=== PATIENT | female | born 1990 | race Caucasian/White ===

== ENCOUNTER → 2020-02-28 19:33 | Outpatient (BNVA) | payer MEDICAID, SELFPAY | PROVIDERS: Family Provider Nurse Practitioner; Visit Provider Nurse Practitioner Family | DX: Z11.59 Encounter for screening for other viral diseases (principal) | CPT/HCPCS: 87635 ==

== ENCOUNTER → 2020-05-21 16:23 | Outpatient (BNVA) | payer OTHER, SELFPAY | PROVIDERS: Family Provider Nurse Practitioner; Visit Provider Family Medicine | DX: J02.9 Acute pharyngitis, unspecified (principal) | CPT/HCPCS: 87071; 87880 ==

== ENCOUNTER → 2020-06-19 17:06 | Outpatient (BNVA) | payer OTHER, SELFPAY | PROVIDERS: Family Provider Nurse Practitioner; Visit Provider Family Medicine | DX: G62.9 Polyneuropathy, unspecified (principal) | CPT/HCPCS: 36416; 80053; 82607; 82962; 84443 ==

== ENCOUNTER 2021-01-09 02:23 | Emergency (ER) | payer OTHER, SELFPAY ==
[2021-01-09 02:41] VITALS: BP 127/89; PULSE 113; RESP 18; TEMP 38.2; O2SAT 98; BMI 38.0
--- NOTE | 2021-01-09 02:56 | XRR_ITS ---
PROCEDURE INFORMATION: Exam: XR Chest Exam date and time: 01/09/2021 2:56 AM Age: 30 years old Clinical indication: Patient HX: Fever. TECHNIQUE: Imaging protocol: XR of the chest. Views: 1 view. COMPARISON: No relevant prior studies available. FINDINGS: Lungs: Hazy right basilar opacity which could be secondary to atelectasis or pneumonia. Pleural spaces: Unremarkable. No pleural effusion. No pneumothorax. Heart/Mediastinum: Unremarkable. No cardiomegaly. Bones/joints: Unremarkable. XR/XR chest 1V portable [id number] IMPRESSION: Hazy right basilar opacity which could be secondary to atelectasis or pneumonia.
--- NOTE | 2021-01-09 03:12 | ED_ITS ---
HPI - COVID General: Chief Complaint: Fever Stated Complaint: Fever\Muscles Aches\Urine dark Time Seen by Provider: 01/09/21 03:06 Source: patient Mode of arrival: ambulatory Limitations: no limitations Triage information: Has fever, cough or shortness of breath . No known COVID + exposure last 14 days History of Present Illness: HPI Narrative: 30-year-old female states over the last 3 days she has been having fevers along with some lower back pain and body aches. She has had temperature up to 102. States she had a rapid test yesterday was negative. She states that her urine has been dark as well. Denies any dysuria. She denies any pain currently. Denies any vomiting or diarrhea. Denies cough or shortness of breath COVID 19 common symptoms: positive fever(s), chills and body aches; negative dyspnea, headache(s), throat pain, nausea, vomiting or diarrhea COVID 19 other sytmptoms: negative chest pain COVID Results: SARS-CoV-2 Antigen (Rapid) Negative (Negative) 01/09/21 03:58 01/09/21 Nasal/Oral Coronavirus 2019 PCR Negative 02/28/20 19:33 02/28/20 Review of Systems Const: Reports: fever(s), chills and body aches Eyes: Denies: blurry vision or eye discomfort ENMT: Denies: throat pain or dental pain Card: Denies: chest pain Resp: Denies: dyspnea GI: Denies: abdominal pain, nausea, vomiting or diarrhea : Denies: dysuria Musc: Denies: neck pain or back pain Skin/Breast: Denies: rash Neuro: Denies: headache(s) Psych: Denies: depression Prem/Lymph: Denies: easy bruising All/Imm: Denies: urticaria PFSH ED PFSH: Social History Smoking and tobacco status: never smoked Alcohol intake: never Female Reproductive History: Spontaneous abortions: No Physical Exam Const: COMMON NORMALS: no acute distress, patient oriented x3 and healthy appearing HENMT: COMMON NORMALS: normocephalic and atraumatic HEAD & SCALP: normocephalic and atraumatic Eye: COMMON NORMALS: Equal, round and reactive pupils present and EOMs intact bilaterally PUPIL: Yes Equal, round and reactive pupils present Neck/C-Spine: COMMON NORMALS: full ROM and supple Chest: COMMONS NORMALS: normal inspection of the chest and normal palpation of entire chest wall Resp: COMMON NORMALS: normal respiratory effort, No retractions, No use of accessory muscles and clear to auscultation bilaterally AUSCULTATION: clear to auscultation bilaterally Cardio: COMMON NORMALS: regular rate, regular rhythm and No murmurs present (Cardio) RATE: regular rate RHYTHM: regular rhythm GI: COMMON NORMALS: Normal to inspection, nondistended, normoactive bowel sounds present, Soft to palpation, non-tender and no masses PALPATION: Yes Soft to palpation Extremity: COMMON NORMALS: normal to inspection and full ROM Neuro: COMMON NORMALS: patient oriented x3, moves all extremities and no focal motor deficits Psych: COMMON NORMALS: mental status grossly normal, Normal thought process present and cooperative THOUGHT PROCESS: Normal thought process present Skin: COMMON NORMALS: no rashes or lesions noted and no wounds GENERAL SKIN EXAM: no rashes or lesions noted Course Vital Signs: Vital signs: Vital Signs Temperature 100.8 F H 01/09/21 02:41 Pulse Rate 113 H 01/09/21 02:41 Respiratory Rate 18 01/09/21 02:41 Blood Pressure 127/89 01/09/21 02:41 Pulse Oximetry 98 01/09/21 02:41 MDM - COVID MDM Narrative: Medical decision making narrative: Patient presents here with pyelonephritis likely causing her fever and body aches. Patient given IV Rocephin here and will prescribe Cipro for home. She is in no vomiting and does not appear septic. She is to follow-up with PCP and return if worsening. Lab Data: Labs: Lab Results 01/09/21 01/09/21 01/09/21 Range/Units 03:00 03:58 03:58 WBC Cancelled Corrected WBC Cancelled RBC Cancelled Hgb Cancelled Hct Cancelled MCV Cancelled MCH Cancelled MCHC Cancelled RDW Cancelled Plt Count Cancelled MPV Cancelled Gran % Cancelled Neut % (Auto) Cancelled Lymph % (Auto) Cancelled [place] % (Auto) Cancelled Eos % (Auto) Cancelled Baso % (Auto) Cancelled Neut # (Auto) Cancelled Lymph # (Auto) Cancelled [place] # (Auto) Cancelled Eos # (Auto) Cancelled Baso # (Auto) Cancelled Absolute Gran (aut o) Cancelled Nucleated RBC % (a uto) Cancelled Nucleated RBCs # Cancelled Sodium 135 L (136-145) mmol/L Potassium 4.4 (3.5-5.1) mmol/L Chloride 100 (98-107) mmol/L Carbon Dioxide 24 (22-29) mmol/L Anion Gap 15.4 (5-19) BUN 10 (6-20) mg/dL Creatinine 0.6 (0.5-0.9) mg/dL GFR Calculation 118.2 (90-130) mL/min Glucose 103 (65-115) mg/dL Calculated Osmolal ity 279 L (285-295) mOsm/k g Calcium 8.7 (8.5-10.5) mg/dL Total Bilirubin 0.6 (0.15-1.2) mg/dL AST 47 H (0-32) U/L ALT 50 H (0-33) U/L Alkaline Phosphata se 124 H (35-105) IU/L Total Protein 6.8 (6.6-8.7) g/dL Albumin 4.1 (3.5-5.2) g/dL Globulin 2.7 (1.3-4.6) g/dL Urine Color Yellow (Yellow) Urine Appearance Sl hazy (CLEAR) Urine pH 7 (5-7) Ur Specific Gravit y 1.010 (1.005-1.030) Urine Protein 1+ H (Negative) Urine Glucose (UA) Norm (Normal) Urine Ketones Negative (Negative) Urine Blood 2+ H (Negative) Urine Nitrate Positive H (Negative) Urine Bilirubin 1+ H (Negative) Urine Urobilinogen 8 H (Negative) mg/dL Ur Leukocyte Anusha ase Trace H (Negative) Urine RBC 5-10 H (0-2) /hpf Urine WBC 15-25 H (0-5) /hpf Ur Squamous Epith Cells 0-4 H (0-5) /hpf Calcium Oxalate Cr ystal 10-15 H /hpf Amorphous Sediment Not Reportable Urine Bacteria 3+ H (NONE) /hpf SARS-CoV-2 Ag (Rap id) (Negative) 01/09/21 01/09/21 Range/Units 03:58 04:10 WBC 2.6 L Corrected WBC RBC 4.81 Hgb 12.5 Hct 39.3 MCV 81.7 MCH 26.0 L MCHC 31.8 RDW 14.1 Plt Count 107 L MPV 13.5 H Gran % Neut % (Auto) 59.4 Lymph % (Auto) 26.1 [place] % (Auto) 12.5 Eos % (Auto) 0.8 Baso % (Auto) 0.8 Neut # (Auto) 1.57 L Lymph # (Auto) 0.7 L [place] # (Auto) 0.3 Eos # (Auto) 0.0 Baso # (Auto) 0.0 Absolute Gran (aut o) Nucleated RBC % (a uto) 0 Nucleated RBCs # 0.0 Sodium (136-145) mmol/L Potassium (3.5-5.1) mmol/L Chloride (98-107) mmol/L Carbon Dioxide (22-29) mmol/L Anion Gap (5-19) BUN (6-20) mg/dL Creatinine (0.5-0.9) mg/dL GFR Calculation (90-130) mL/min Glucose (65-115) mg/dL Calculated Osmolal ity (285-295) mOsm/k g Calcium (8.5-10.5) mg/dL Total Bilirubin (0.15-1.2) mg/dL AST (0-32) U/L ALT (0-33) U/L Alkaline Phosphata se (35-105) IU/L Total Protein (6.6-8.7) g/dL Albumin (3.5-5.2) g/dL Globulin (1.3-4.6) g/dL Urine Color (Yellow) Urine Appearance (CLEAR) Urine pH (5-7) Ur Specific Gravit y (1.005-1.030) Urine Protein (Negative) Urine Glucose (UA) (Normal) Urine Ketones (Negative) Urine Blood (Negative) Urine Nitrate (Negative) Urine Bilirubin (Negative) Urine Urobilinogen (Negative) mg/dL Ur Leukocyte Anusha ase (Negative) Urine RBC (0-2) /hpf Urine WBC (0-5) /hpf Ur Squamous Epith Cells (0-5) /hpf Calcium Oxalate Cr ystal /hpf Amorphous Sediment Urine Bacteria (NONE) /hpf SARS-CoV-2 Ag (Rap id) Negative (Negative) Imaging Data: CXR: Attestation: I personally reviewed and interpreted this imaging study as follows: My impression: No acute abnormality COVID Results: SARS-CoV-2 Antigen (Rapid) Negative (Negative) 01/09/21 03:58 01/09/21 Nasal/Oral Coronavirus 2019 PCR Negative 02/28/20 19:33 02/28/20 Discharge Plan Discharge Patient Disposition: Home Clinical Impression: Pyelonephritis Condition: Stable Prescriptions: New ciprofloxacin HCl 500 mg tablet 500 mg PO BID Qty: 14 RF: 0 No Action methylprednisolone [Medrol (Antonio)] 4 mg tablets,dose pack See Rx Instructions PO PER PKG DIR Qty: 21 RF: 0 gabapentin 300 mg capsule 300 mg PO .qhs Qty: 30 RF: 2 gabapentin 100 mg capsule 100 mg PO BID Qty: 60 RF: 2 Discharge Orders: Discharge ED (Routine); Ordered 01/09/21 Ordered By: Lola Welch Referrals: Azul Coleman FNP-C [Family Provider] - 1-3 days Discharge Diet: Advance as tolerated Discharge Activity: Resume usual activity Patient Instructions: Acute Pyelonephritis (ED) Coding Level of Care Code ED Clam Treader for Wilbert Fwd Exam Comprehensive
[2021-01-09] MEDS: acetaminophen 500 mg Tablet 1000 MG PO (03:56)
[2021-01-09 04:19] LABS: Basophils % 0.8 %; Eosinophils % 0.8 %; Hematocrit 39.3 % (37.0-47.0); Hemoglobin 12.5 g/dL (11.5-15.3); Lymphocytes # 0.7 10^3/uL (0.8-4.8); Lymphocytes % 26.1 %; Mean Corpuscular HGB Conc 31.8 g/dL (30.0-36.0); Mean Corpuscular Volume 81.7 fL (81-99); Mean Platelet Volume 13.5 fL (7.4-10.4); Monocytes # 0.3 10^3/uL (0.2-0.9); Monocytes % 12.5 %; Neutrophils # 1.57 10^3/uL (1.8-7.7); Neutrophils % 59.4 %; Nucleated Red Blood Cells % 0 %; Platelet Count 107 10^3/cmm (130-400); Red Blood Count 4.81 10^6/uL (4.1-5.3); Red Cell Distribution Width 14.1 % (12.1-15.1); White Blood Count 2.6 10^3/uL (4.0-10.0)
[2021-01-09 04:21] LABS: Glucose Urine UA Norm (Normal); Ketones Urine Negative (Negative); Protein Urine 1+ (Negative); Urine Appearance SL Hazy (CLEAR); Urine Color Yellow (Yellow); pH Urine 7 (5-7)
[2021-01-09 04:22] LABS: Add Urine Culture? Yes; Add Urine Microscopic? YES; Bacteria Urine 3+ /hpf; Bilirubin Urine 1+ (Negative); Blood Urine 2+ (Negative); Leukocyte Esterase Urine Trace (Negative); Nitrate Urine Positive (Negative); Squamous Epithelial Cell Urine 0-4 /hpf (0-5); Urobilinogen Urine 8 mg/dL (Negative); WBC Urine 15-25 /hpf (0-5)
[2021-01-09 04:24] LABS: Alanine Aminotransferase 50 U/L (0-33); Albumin Level 4.1 g/dL (3.5-5.2); Alkaline Phosphatase 124 IU/L (35-105); Blood Urea Nitrogen 10 mg/dL (6-20); Calcium 8.7 mg/dL (8.5-10.5); Carbon Dioxide 24 mmol/L (22-29); Chloride 100 mmol/L (98-107); Globulin 2.7 g/dL (1.3-4.6); Glomerular Filtration Rate 118.2 mL/min (90-130); Glucose 103 mg/dL (65-115); Osmolality Calculated 279 mOsm/kg (285-295); Sodium 135 mmol/L (136-145); Total Bilirubin 0.6 mg/dL (0.15-1.2); Total Protein 6.8 g/dL (6.6-8.7)
[2021-01-09] MEDS: sodium chloride 0.9% 1,000 ML 999 ML IV (04:25)
[2021-01-09 04:28] LABS: Anion Gap 15.4 (5-19); Aspartate Amino Transferase 47 U/L (0-32); Potassium 4.4 mmol/L (3.5-5.1)
[2021-01-09 04:29] LABS: SARS Covid-2 Antigen Negative (Negative)
[2021-01-09 04:45] LABS: Slide Review Slide Review Perform
[2021-01-09 04:48] VITALS: BP 112/66; PULSE 102; RESP 16; TEMP 37.2; O2SAT 100
[2021-01-09] MEDS: cefTRIAXone 1,000 MG in sodium chloride 0.9% (plus) 100 ML 200 MG IV (04:50)
[2021-01-09 05:44] VITALS: BP 99/61; PULSE 97; RESP 16; TEMP 37.2; O2SAT 100
== END 2021-01-09 05:46 | disposition home or self-care (01) ==
PROVIDERS: Emergency Provider Emergency Medicine; Family Provider Nurse Practitioner
DX: N12 Tubulo-interstitial nephritis, not specified as acute or chronic (principal)
CPT/HCPCS: 71045; 80053; 81001; 85025; 87077; 87086; 87186; 87426; 96365; 99284; J0696; J7030

== ENCOUNTER 2021-12-28 15:42 | Emergency (ER) | payer OTHER, SELFPAY | END 2021-12-28 16:00 | disposition left against medical advice (07) | PROVIDERS: Emergency Provider Family Medicine | DX: Z53.21 Procedure and treatment not carried out due to patient leaving prior to being seen by health care provider (principal) | CPT/HCPCS: 74018; 81000; 81025 ==

== ENCOUNTER 2022-01-01 13:31 | Emergency (ER) | payer OTHER, SELFPAY ==
[2022-01-01 13:39] VITALS: BP 136/95; PULSE 88; RESP 16; TEMP 36.8; O2SAT 98; BMI 46.5
[2022-01-01 13:43] VITALS: BP 136/95; PULSE 88; RESP 16; TEMP 36.8; O2SAT 98
--- NOTE | 2022-01-01 15:16 | CT_ITS ---
WS: [id number] CT ABDOMEN PELVIS TECHNIQUE: Noncontrast CT of the abdomen and pelvis with coronal and sagittal reformatted images. CLINICAL INFORMATION: flank pain COMPARISON: None. DLP: 1503.[address] scans at [facility] use at least one of these dose optimization techniques: automated e xposure control; mA and/or kV adjustment per patient size (includes targeted exams where dose is matc hed to clinical indication); or iterative reconstruction. FINDINGS: 4 mm obstructing LEFT proximal ureteral calculus with mild LEFT pelvocaliectasis. Dilatation of the L EFT proximal ureter. Minimal induration about the LEFT kidney. Distal LEFT ureter is decompressed. No obstructing RIGHT renal or ureteral calculi. Nonobstructing LEFT calyceal tip calculus measuring 4.4 mm. Lung bases are well aerated. Hepatomegaly. Normal noncontrast spleen. Cholecystectomy. Normal GE junction. Adrenal glands are nor mal. Normal visualized noncontrast pancreas. Normal caliber abdominal aorta. Normal sigmoid colon. No evidence of high-grade small or large bowel obstruction. Urine distended melissa dder. Normal appendix. Tiny fat-containing umbilical hernia. No abdominal lymphadenopathy. No pelvic or inguinal lymphadenopathy. CT/CT kidney stone [id number] IMPRESSION: 1. 4 mm obstructing LEFT proximal ureteral calculus with mild LEFT pelvocaliec tasis. Dilatation of the LEFT proximal ureter. Minimal induration about the LEF T kidney. Distal LEFT ureter is decompressed. 2. Normal RIGHT kidney. 3. Hepatomegaly. 4. No other acute findings. Message LEFT for Adama Wallace DO at 01/01/2022 4:16 PM.
[2022-01-01 15:21] VITALS: RESP 18; O2SAT 99
[2022-01-01] MEDS: morphine 4 mg/mL SDV 1 mL 6 MG IVP (15:21)
[2022-01-01] MEDS: ondansetron 2 mg/ML SDV 2 mL 4 MG IVP (15:22)
[2022-01-01 15:37] LABS: Add Urine Culture? No; Bilirubin Urine Neg (Negative); Blood Urine 3+ (Negative); Glucose Urine UA Norm (Normal); Ketones Urine Negative (Negative); Leukocyte Esterase Urine Negative (Negative); Nitrate Urine Negative (Negative); Protein Urine Neg (Negative); RBC Urine 0-4 /hpf (0-2); Squamous Epithelial Cell Urine 0-4 /hpf (0-5); Urine Appearance Clear (CLEAR); Urine Color Yellow (Yellow); Urobilinogen Urine Norm (Negative); WBC Urine 0-4 /hpf (0-5); pH Urine 6.5 (5-7)
--- NOTE | 2022-01-01 15:45 | ED_ITS ---
HPI - Female Genitourinary General: Chief complaint: Urogenital-Female Stated complaint: left flank pain, lower abd pain Time Seen by Provider: 01/01/22 14:59 Source: patient Mode of arrival: ambulatory Limitations: no limitations History of Present Illness: 31-year-old female presents to the emergency room with complaints of left flank pain that began 3 days ago. She has noticed hematuria as well. She has had increasing severe pain today for a time and it let up and then suddenly began worsening again. She denies any fever sweats chills. She has previously had a tubal ligation. MD elicited complaint: flank pain Pertinent past history: other (Nephrolithiasis) Onset (ago): minute(s) Severity: severe Quality of pain: cramping Consistency: constant Exacerbating factors: none Relieving factors: none Associated symptoms: Reports abdominal pain and nausea; Deny short of breath, fevers/chills, headache(s), rash, seizures, syncope, vaginal discharge or weakness Treatment prior to arrival: none Review of Systems Const: Denies: fever(s), chills, body aches, change in appetite, fatigue or malaise ENMT: Denies: throat pain, ear or mastoid pain, nasal discharge or nasal congestion Card: Denies: chest pain, palpitations or syncope Resp: Denies: dyspnea, productive cough or non-productive cough GI: Reports: abdominal pain, nausea and vomiting : Reports: flank pain, difficulty voiding and hematuria; Denies: dysuria, urinary frequency or vaginal discharge Musc: Reports: back pain; Denies: neck pain Skin/Breast: Denies: rash or pruritus Neuro: Denies: headache(s) [facility] ED PFSH: Medical History (Updated 01/01/22 @ 16:08 by Adama Wallace DO) Nephrolithiasis Surgical History (Updated 01/01/22 @ 15:56 by Adama Wallace DO) H/O tubal ligation Social History Smoking and tobacco status: never smoked Alcohol intake: never Female Reproductive History: Spontaneous abortions: No Physical Exam Const: GENERAL APPEARANCE: cooperative and comfortable ORIENTATION/CONSCIOUSNESS: Yes awake, Yes oriented to person, Yes oriented to place and Yes oriented to time HENMT: COMMON NORMALS: normocephalic, atraumatic and hearing grossly normal bilaterally HEAD & SCALP: normocephalic and atraumatic Resp: COMMON NORMALS: normal respiratory effort, No retractions, No use of accessory muscles and clear to auscultation bilaterally AUSCULTATION: clear to auscultation bilaterally Cardio: COMMON NORMALS: regular rate, regular rhythm and No murmurs present (Cardio) RATE: regular rate RHYTHM: regular rhythm GI: COMMON NORMALS: Soft to palpation and No hepatosplenomegaly present AUSCULTATION: Yes normoactive bowel sounds PALPATION: Yes Soft to palpation, No Tenderness to palpation present (GI), No Guarding due to palpation present (GI) and Yes No hepatosplenomegaly present Extremity: COMMON NORMALS: normal to inspection, capillary refill normal, no clubbing, cyanosis or edema, no calf tenderness and no pedal edema Neuro: SENSORIUM/ORIENTATION: Yes oriented to person, Yes oriented to place and Yes oriented to time Skin: COMMON NORMALS: no rashes or lesions noted GENERAL SKIN EXAM: no rashes or lesions noted Course Vital Signs: Vital signs: Vital Signs Temperature 98.2 F 01/01/22 13:43 Pulse Rate 88 01/01/22 13:43 Respiratory Rate 18 01/01/22 15:21 Blood Pressure 136/95 01/01/22 13:43 Pulse Oximetry 99 01/01/22 15:21 MDM - Female Medical Decision Making 4 mm mid ureteral stone on the left. Start Flomax if patient more hydrocodone. Also gave urine strainer. Follow-up with Dr. Larios collect stone if able. Lab Data Radiology Impressions Abdomen/Pelvis CT 01/01/22 15:16 IMPRESSION: 1. 4 mm obstructing LEFT proximal ureteral calculus with mild LEFT pelvocaliectasis. Dilatation of the LEFT proximal ureter. Minimal induration about the LEFT kidney. Distal LEFT ureter is decompressed. 2. Normal RIGHT kidney. 3. Hepatomegaly. 4. No other acute findings. Message LEFT for Adama Wallace DO at 01/01/2022 4:16 PM. Laboratory Results Urine Color Yellow (Yellow) 01/01/22 15:10 Urine Appearance Clear (CLEAR) 01/01/22 15:10 Urine pH 6.5 (5-7) 01/01/22 15:10 Ur Specific [place] 1.010 (1.005-1.030) 01/01/22 15:10 Urine Protein Neg (Negative) 01/01/22 15:10 Urine Glucose (UA) Norm (Normal) 01/01/22 15:10 Urine Ketones Negative (Negative) 01/01/22 15:10 Urine Blood 3+ (Negative) H 01/01/22 15:10 Urine Nitrate Negative (Negative) 01/01/22 15:10 Urine Bilirubin Neg (Negative) 01/01/22 15:10 Urine Urobilinogen Norm mg/dL (Negative) 01/01/22 15:10 Ur Leukocyte Esterase Negative (Negative) 01/01/22 15:10 Urine RBC 0-4 /hpf (0-2) H 01/01/22 15:10 Urine WBC 0-4 /hpf (0-5) H 01/01/22 15:10 Ur Squamous Epith Cells 0-4 /hpf (0-5) H 01/01/22 15:10 Amorphous Sediment Not Reportable 01/01/22 15:10 Urine Bacteria None /hpf (NONE) 01/01/22 15:10 Discharge Plan Discharge Patient Disposition: Home Clinical Impression: Kidney stone on left side Condition: Stable Prescriptions: New Flomax 0.4 mg capsule 0.4 mg PO DAILY Qty: 20 0RF hydrocodone-acetaminophen 5-325 mg tablet 1 tab PO Q6H PRN (Reason: pain) Qty: 20 0RF No Action ondansetron HCl (PF) 4 mg/2 mL solution 4 mg IM ONCE Qty: 1 0RF hydrocodone-acetaminophen 5-325 mg tablet 1 tab PO BID PRN (Reason: pain) 5 Days Qty: 10 0RF amoxicillin-pot clavulanate 875-125 mg tablet 1 tab PO BID 5 Days Qty: 10 0RF Discharge Orders: Discharge ED (Routine); Ordered 01/01/22 Ordered By: Adama Wallace Discharge Diet: Usual diet Discharge Activity: Increase activity as tolerated Patient Instructions: Opioid Safety Activity Restrictions/Additional Instructions: Drain urine to collect renal stone. Case management make arrange for her to follow-up with urology. Coding Level of Care Code ED Kier Drier for Maiag Fwd Exam Detailed
[2022-01-01 16:31] VITALS: RESP 18; O2SAT 99
[2022-01-01] MEDS: morphine 4 mg/mL SDV 1 mL IVP (16:31)
[2022-01-01] MEDS: ketorolac 30 mg/mL INJ 60 MG IM (16:32)
== END 2022-01-01 16:50 | disposition home or self-care (01) ==
PROVIDERS: Emergency Provider Family Medicine
DX: N20.0 Calculus of kidney (principal)
CPT/HCPCS: 74176; 81001; 96372; 96374; 96375; 96376; 99284; J1885; J2270; J2405

== ENCOUNTER → 2022-01-07 08:28 | Outpatient (BNVA) | payer OTHER, SELFPAY | PROVIDERS: Visit Provider Nurse Practitioner Family | DX: N12 Tubulo-interstitial nephritis, not specified as acute or chronic (principal); N20.1 Calculus of ureter; Z87.448 Personal history of other diseases of urinary system | CPT/HCPCS: 74018; 81003 ==

== ENCOUNTER → 2022-05-02 13:00 | Outpatient (BNVA) | payer OTHER, SELFPAY | PROVIDERS: Visit Provider Nurse Practitioner Family | DX: G62.9 Polyneuropathy, unspecified (principal); R00.2 Palpitations; J06.9 Acute upper respiratory infection, unspecified; R63.8 Other symptoms and signs concerning food and fluid intake; E66.01 Morbid (severe) obesity due to excess calories; Z68.42 Body mass index [BMI] 45.0-49.9, adult; Z91.89 Other specified personal risk factors, not elsewhere classified; Z13.1 Encounter for screening for diabetes mellitus | CPT/HCPCS: 80053; 80061; 82306; 82607; 83036; 84443; 85025 ==

== ENCOUNTER 2022-06-15 01:57 | Inpatient (IN) | payer OTHER, SELFPAY ==
[2022-06-15] VITALS (13 sets, daily range): BP systolic 105–141; BP diastolic 78–98; PULSE 96–132; RESP 17–24; TEMP 36.6–37.2; O2SAT 95–100; BMI 48.5
--- NOTE | 2022-06-15 02:05 | CTR_ITS ---
PROCEDURE INFORMATION: Exam: CT Abdomen And Pelvis Without Contrast Exam date and time: 06/15/2022 2:38 AM Age: 32 years old Clinical indication: Abdominal pain; Flank; Left; Prior surgery; Surgery date: 6+ months; Surgery type: Tubal, cholecystectomy; Additional info: Flank pain TECHNIQUE: Imaging protocol: Computed tomography of the abdomen and pelvis without contrast. Radiation optimization: All CT scans at this facility use at least one of these dose optimization techniques: automated exposure control; mA and/or kV adjustment per patient size (includes targeted exams where dose is matched to clinical indication); or iterative reconstruction. COMPARISON: CR XR KUB [id number] 01/07/2022 8:18 AM RADIATION DOSE METRICS: Total DLP (mGy-cm): 1347.63 FINDINGS: Lungs: The visualized lung bases are clear. Liver: Unremarkable. No discrete mass. Gallbladder and bile ducts: Absent gallbladder. Pancreas: Unremarkable with no suspicious mass. No ductal dilation. Spleen: The spleen is not enlarged. No suspicious mass is noted. Adrenal glands: Normal. No mass. Kidneys and ureters: Left proximal ureteral 4 mm calculus causes mild obstruction. No solid renal mass. No right hydronephrosis. Equivocal left lower renal 0.5 mm calculus on series 5, image 31. Stomach and bowel: Fecal filled colon. No small bowel obstruction, abscess or free air. Appendix: No evidence of appendicitis. Intraperitoneal space: Unremarkable. No free air. No suspicious fluid collection. Vasculature: Few small pelvic phleboliths. Lymph nodes: No enlarged lymph nodes. Urinary bladder: Unremarkable as visualized. Reproductive: Small left ovarian cyst or follicle. Bones/joints: No acute fracture. Soft tissues: No acute or suspicious finding noted. CT/CT abdomen pelvis con [id number] IMPRESSION: 1. Left proximal ureteral small calculus causes mild obstruction. 2. Constipation a few other chronic findings.
--- NOTE | 2022-06-15 02:07 | PC.NURSE ---
unable to obtain initial blood pressure as patient unable to tolerate seating position and stillness required. provider and nurse notified to obtain upon relaxation.
--- NOTE | 2022-06-15 02:08 | ED_ITS ---
HPI - Female Genitourinary General: Chief complaint: Urogenital-Female Stated complaint: kidney stones Time Seen by Provider: 06/15/22 01:59 Source: patient Mode of arrival: ambulatory Limitations: no limitations History of Present Illness: 32-year-old female states she woke up with flank pain at midnight. States pain is severe in nature she does have a history of kidney stones states this feels similar she had nausea, vomiting states her pain is currently 10 out of 10 she denies any fevers. Associated symptoms: Reports nausea; Deny headache(s) Review of Systems Const: Denies: fever(s), chills, body aches or change in appetite Eyes: Denies: blurry vision or eye discomfort ENMT: Denies: throat pain or dental pain Card: Denies: chest pain Resp: Denies: dyspnea GI: Reports: nausea and vomiting : Reports: flank pain Musc: Denies: neck pain or back pain Skin/Breast: Denies: rash Neuro: Denies: headache(s) Psych: Denies: depression Prem/Lymph: Denies: easy bruising All/Imm: Denies: urticaria PFSH ED PFSH: Medical History History of pyelonephritis Nephrolithiasis Surgical History H/O tubal ligation Social History Smoking and tobacco status: never smoked Alcohol intake: current Alcohol intake frequency: few times a week Household members: spouse Marital status: Current occupational status: employed History of recent travel: No Female Reproductive History: Spontaneous abortions: No Physical Exam Const: COMMON NORMALS: no acute distress, patient oriented x3 and healthy appearing HENMT: COMMON NORMALS: normocephalic and atraumatic HEAD & SCALP: normocephalic and atraumatic Eye: COMMON NORMALS: Equal, round and reactive pupils present and EOMs intact bilaterally PUPIL: Yes Equal, round and reactive pupils present Neck/C-Spine: COMMON NORMALS: full ROM and supple Chest: COMMONS NORMALS: normal inspection of the chest and normal palpation of entire chest wall Resp: COMMON NORMALS: normal respiratory effort, No retractions, No use of accessory muscles and clear to auscultation bilaterally AUSCULTATION: clear to auscultation bilaterally Cardio: COMMON NORMALS: regular rate, regular rhythm and No murmurs present (Cardio) RATE: regular rate RHYTHM: regular rhythm GI: COMMON NORMALS: Normal to inspection, nondistended, normoactive bowel sounds present, Soft to palpation, non-tender and no masses PALPATION: Yes Soft to palpation Extremity: COMMON NORMALS: normal to inspection and full ROM Neuro: COMMON NORMALS: patient oriented x3, moves all extremities and no focal motor deficits Psych: COMMON NORMALS: mental status grossly normal, Normal thought process present and cooperative THOUGHT PROCESS: Normal thought process present Skin: COMMON NORMALS: no rashes or lesions noted and no wounds GENERAL SKIN EXAM: no rashes or lesions noted Course Vital Signs: Vital signs: Vital Signs Temperature 98.9 F 06/15/22 01:59 Pulse Rate 114 H 06/15/22 04:08 Respiratory Rate 24 H 06/15/22 04:08 Blood Pressure 127/98 06/15/22 04:08 Pulse Oximetry 100 06/15/22 04:08 Oxygen Delivery Me thod 06/15/22 04:08 MDM - Female Medical Decision Making Patient presents here with a kidney stone she has had severe pain here is required multiple doses of Dilaudid and morphine for pain control pain has improved here after Toradol did speak to Dr. Larios will admit for her kidney stone with her pain. Lab Data 06/15/22 02:25 06/15/22 02:25 Radiology Impressions Abdomen/Pelvis CT 06/15/22 02:05 IMPRESSION: 1. Left proximal ureteral small calculus causes mild obstruction. 2. Constipation a few other chronic findings. Laboratory Results WBC 10.1 10^3/uL (4.0-10.0) H 06/15/22 02:25 RBC 4.63 10^6/uL (4.1-5.3) 06/15/22 02:25 Hgb 12.0 g/dL (11.5-15.3) 06/15/22 02:25 Hct 38.0 % (37.0-47.0) 06/15/22 02:25 MCV 82.1 fl (81-99) 06/15/22 02:25 MCH 25.9 pg (28.0-34.0) L 06/15/22 02:25 MCHC 31.6 g/dL (30.0-36.0) 06/15/22 02:25 RDW 13.8 % (12.1-15.1) 06/15/22 02:25 Plt Count 210 10^3/cmm (130-400) 06/15/22 02:25 MPV 12.7 fL (7.4-10.4) H 06/15/22 02:25 Neut % (Auto) 52.8 % 06/15/22 02:25 Lymph % (Auto) 35.4 % 06/15/22 02:25 [place] % (Auto) 9.1 % 06/15/22 02:25 Eos % (Auto) 2.0 % 06/15/22 02:25 Baso % (Auto) 0.3 % 06/15/22 02:25 Neut # (Auto) 5.32 10^3/uL (1.8-7.7) 06/15/22 02:25 Lymph # (Auto) 3.6 10^3/uL (0.8-4.8) 06/15/22 02:25 [place] # (Auto) 0.9 10^3/uL (0.2-0.9) 06/15/22 02:25 Eos # (Auto) 0.2 10^3/uL (0.0-0.8) 06/15/22 02:25 Baso # (Auto) 0.0 10^3/uL (0.0-0.1) 06/15/22 02:25 Nucleated RBC % (auto) 0 % 06/15/22 02:25 Nucleated RBCs # 0.0 /100WBC 06/15/22 02:25 Sodium 135 mmol/L (136-145) L 06/15/22 02:25 Potassium 4.2 mmol/L (3.5-5.1) 06/15/22 02:25 Chloride 102 mmol/L (98-107) 06/15/22 02:25 Carbon Dioxide 26 mmol/L (22-29) 06/15/22 02:25 Anion Gap 11.2 (5-19) 06/15/22 02:25 BUN 16 mg/dL (6-20) 06/15/22 02:25 Creatinine 0.6 mg/dL (0.5-0.9) 06/15/22 02:25 GFR Calculation 116.6 mL/min (90-130) 06/15/22 02:25 Glucose 102 mg/dL (65-115) 06/15/22 02:25 Calculated Osmolality 281 mOsm/kg (285-295) L 06/15/22 02:25 Calcium 9.7 mg/dL (8.5-10.5) 06/15/22 02:25 Total Bilirubin 0.2 mg/dL (0.15-1.2) 06/15/22 02:25 AST 14 U/L (0-32) 06/15/22 02:25 ALT 16 U/L (0-33) 06/15/22 02:25 Alkaline Phosphatase 90 U/L (35-105) 06/15/22 02:25 Total Protein 7.3 g/dL (6.6-8.7) 06/15/22 02:25 Albumin 3.9 g/dL (3.5-5.2) 06/15/22 02:25 Globulin 3.4 g/dL (1.3-4.6) 06/15/22 02:25 Lipase 31 U/L (13-60) 06/15/22 02:25 HCG, Qual Negative (Negative) 06/15/22 02:38 Urine Color Yellow (Yellow) 06/15/22 02:38 Urine Appearance Sl hazy (CLEAR) A 06/15/22 02:38 Urine pH 6 (5-7) 06/15/22 02:38 Ur Specific [place] 1.015 (1.005-1.030) 06/15/22 02:38 Urine Protein Neg (Negative) 06/15/22 02:38 Urine Glucose (UA) Norm (Normal) 06/15/22 02:38 Urine Ketones Negative (Negative) 06/15/22 02:38 Urine Blood 2+ (Negative) H 06/15/22 02:38 Urine Nitrate Negative (Negative) 06/15/22 02:38 Urine Bilirubin Neg (Negative) 06/15/22 02:38 Urine Urobilinogen Norm mg/dL (Negative) 06/15/22 02:38 Ur Leukocyte Esterase 2+ (Negative) H 06/15/22 02:38 Urine RBC 5-10 /hpf (0-2) H 06/15/22 02:38 Urine WBC 40-55 /hpf (0-5) H 06/15/22 02:38 Ur Squamous Epith Cells 25-40 /hpf (0-5) H 06/15/22 02:38 Amorphous Sediment Not Reportable 06/15/22 02:38 Urine Bacteria 3+ /hpf (NONE) H 06/15/22 02:38 Urine Mucus 1+ /hpf 06/15/22 02:38 Discharge Plan Discharge Patient Disposition: Admitted As Inpatient Clinical Impression: Kidney stone on left side Condition: Stable Coding Level of Care Code ED Machine Lay Out Worker for [facility] Exam Comprehensive
[2022-06-15] MEDS: HYDROmorphone 1 mg/mL INJ 1 mL IVP ×2 (02:22→02:54)
[2022-06-15] MEDS: ondansetron 2 mg/ML SDV 2 mL 4 MG IVP ×3 (02:22→17:22)
[2022-06-15] MEDS: sodium chloride 0.9% 1,000 ML 999 ML IV (02:23)
[2022-06-15 02:48] LABS: Basophils % 0.3 %; Eosinophils # 0.2 10^3/uL (0.0-0.8); Lymphocytes # 3.6 10^3/uL (0.8-4.8); Lymphocytes % 35.4 %; Mean Corpuscular HGB Conc 31.6 g/dL (30.0-36.0); Mean Corpuscular Hemoglobin 25.9 pg (28.0-34.0); Mean Corpuscular Volume 82.1 fl (81-99); Mean Platelet Volume 12.7 fL (7.4-10.4); Monocytes # 0.9 10^3/uL (0.2-0.9); Monocytes % 9.1 %; Neutrophils # 5.32 10^3/uL (1.8-7.7); Neutrophils % 52.8 %; Nucleated Red Blood Cells % 0 %; Platelet Count 210 10^3/cmm (130-400); Red Blood Count 4.63 10^6/uL (4.1-5.3); Red Cell Distribution Width 13.8 % (12.1-15.1); White Blood Count 10.1 10^3/uL (4.0-10.0)
[2022-06-15 02:49] LABS: HCG Qualitative Urine. Negative (Negative)
[2022-06-15 02:53] LABS: Add Urine Microscopic? YES; Bilirubin Urine Neg (Negative); Blood Urine 2+ (Negative); Glucose Urine UA Norm (Normal); Ketones Urine Negative (Negative); Leukocyte Esterase Urine 2+ (Negative); Nitrate Urine Negative (Negative); Protein Urine Neg (Negative); Specific Gravity, Urine 1.015 (1.005-1.030); Urine Appearance SL Hazy (CLEAR); Urine Color Yellow (Yellow); Urobilinogen Urine Norm (Negative); pH Urine 6 (5-7)
[2022-06-15 02:54] LABS: Add Urine Culture? No; Bacteria Urine 3+ /hpf; Mucus Urine 1+ /hpf; Squamous Epithelial Cell Urine 25-40 /hpf (0-5); WBC Urine 40-55 /hpf (0-5)
[2022-06-15 03:02] LABS: Alanine Aminotransferase 16 U/L (0-33); Albumin Level 3.9 g/dL (3.5-5.2); Alkaline Phosphatase 90 U/L (35-105); Anion Gap 11.2 (5-19); Aspartate Amino Transferase 14 U/L (0-32); Blood Urea Nitrogen 16 mg/dL (6-20); Calcium 9.7 mg/dL (8.5-10.5); Carbon Dioxide 26 mmol/L (22-29); Chloride 102 mmol/L (98-107); Globulin 3.4 g/dL (1.3-4.6); Glomerular Filtration Rate 116.6 mL/min (90-130); Glucose 102 mg/dL (65-115); Lipase 31 U/L (13-60); Osmolality Calculated 281 mOsm/kg (285-295); Potassium 4.2 mmol/L (3.5-5.1); Sodium 135 mmol/L (136-145); Total Bilirubin 0.2 mg/dL (0.15-1.2); Total Protein 7.3 g/dL (6.6-8.7)
[2022-06-15] MEDS: morphine 4 mg/mL SDV 1 mL IVP ×2 (03:37→18:29)
[2022-06-15] MEDS: HYDROmorphone 1 mg/mL INJ 1 mL 0.5 MG IVP (04:04)
[2022-06-15] MEDS: LORazepam 2 mg/mL INJ 1 mL 1 MG IVP (04:04)
[2022-06-15] MEDS: cefTRIAXone 1,000 MG in sodium chloride 0.9% (plus) 50 ML 100 MG IV (04:47)
[2022-06-15] MEDS: ketorolac 30 mg/mL INJ IVP (04:47)
[2022-06-15] MEDS: sodium chloride 0.9% 1,000 ML 100 ML IV (05:53)
--- NOTE | 2022-06-15 07:46 | P.HP_ITS ---
Providers/Chief Complaint Admitting Physician: Froylan Larios MD Chief Complaint: kidney stones History of Present Illness Nathalia Arboleda is a 32 year old female who I saw when she was a early teenager for a stone that spontaneously passed. She has passed a total of about 6 stones over the years and never had to have any intervention. Her most recent stone passage was in December of this year and at that time the CT scan showed an additional stone, this stone, and the left kidney in a nonobstructing position. No additional stones. Presented with acute onset of typical left renal colic. She describes it as the worst she has had with stones. No fever or chills. No significant lower urinary tract symptoms. In the emergency department she had a CT scan that showed about a 5 mm x 3 mm left proximal ureteral stone with mild obstructive changes. Had a difficult time controlling her pain. For that reason she was admitted. H er urine did show some pyuria but she was clinically not infected. Was covered with antibiotics. We had a long discussion regarding her treatment options which included intervention endoscopic, possibly ESWL, continued medical therapy inpatient versus outpatient pending her symptomatic control, and ultimately she elected to try to see if she could get her pain well enough controlled here and manage it with tools it would be available to her on an outpatient basis. If not then she would concede for intervention endoscopically. We will let her eat, start her on Flomax, work aggressively to control her pain with both IV and oral medications and hopefully transition to oral medications alone where she could manage this at home in hopes of spontaneous passage. Did review that if she develops a picture of more serious infectious concerns that she would need to be taken to the operating room urgently for stent placement. Other than obesity she is healthy and has no other significant medical concerns. She is a nurse Review of Systems 2 Const: Denies: fever(s) or chills Eyes: Reports: change in vision ENMT: Denies: hoarseness Card: Denies: chest pain or palpitations Resp: Denies: dyspnea or productive cough GI: Reports: abdominal pain, nausea and vomiting : Reports: flank pain; Denies: dysuria Musc: Denies: joint redness Skin/Breast: Denies: jaundice Neuro: Denies: confusion or Slurred speech present Psych: Reports: anxiety (Related to her medical status.) Endo: Denies: flushing Prem/Lymph: Denies: easy bruising or easy bleeding All/Imm: Denies: acute wheezing Medications/Allergies Home Medications Medication Instructions Recorded Confirmed Last Taken Type tamsulosin 0.4 mg capsule (Flomax) 0.4 mg PO DAILY #20 caps 01/01/22 05/01/22 Unknown Rx doxycycline hyclate 100 mg capsule 100 mg PO BID 10 days #20 caps 05/01/22 05/01/22 Unknown Rx naltrexone 8 mg-bupropion 90 mg 2 tab PO BID 30 days #120 tabs 05/01/22 05/01/22 Unknown Rx tablet,extended release (Contrave) tirzepatide 2.5 mg/0.5 mL 2.5 mg (0.5 mL) SUBCUT .WEEKLY 4 05/01/22 05/01/22 Unknown Rx subcutaneous pen injector weeks #2 mL (Mounjaro) cholecalciferol (vitamin D3) 50 50 mcg PO DAILY 90 days #90 caps 05/05/22 Unknown Rx mcg (2,000 unit) capsule Allergies Allergy/AdvReac Type Severity Reaction Status Date / Time No Known Allergies Allergy Verified 01/07/22 08:49 PFSH Acute PFSH: Medical History History of pyelonephritis Nephrolithiasis Urolithiasis Surgical History H/O tubal ligation Social History Smoking and tobacco status: never smoked Alcohol intake: current Alcohol intake frequency: few times a week Household members: spouse Marital status: Current occupational status: employed History of recent travel: No Female Reproductive History: Date of last menstrual period: 06/03/22 Spontaneous abortions: No Vitals/I&O/Wt Last Vital Signs Temp 97.9 F 06/15/22 05:54 Pulse 102 H 06/15/22 05:54 Resp 17 06/15/22 05:54 BP 133/78 06/15/22 05:54 Pulse Ox 100 06/15/22 05:54 O2 Del Method 06/15/22 05:18 06/14/22 06/15/22 06/15/22 22:59 06:59 14:59 Intake Total 1050 / 1050 Balance 1050 / 1050 Weight last 48 hrs Weight 291 lb 9.6 oz Physical Exam Const: COMMON NORMALS: no acute distress, alert and well nourished GENERAL APPEARANCE: well kempt and well developed ORIENTATION/CONSCIOUSNESS: not confused HENMT: COMMON NORMALS: normocephalic HEAD & SCALP: normal to inspection and normocephalic Eye: COMMON NORMALS: conjunctivae normal and no scleral icterus CONJUNCTIVA: Yes conjunctivae normal Neck/C-Spine: GENERAL: Yes normal visual inspection Lymph: OTHER: Lymphedema Chest: OTHER: Normal chest movement Resp: COMMON NORMALS: normal respiratory effort EFFORT & INSPECTION: Yes able to speak in complete sentences, No labored and No Actively coughing Cardio: COMMON NORMALS: regular rate and regular rhythm GI: OTHER: Left abdominal tenderness Back/Pelvis: OTHER: Left CVA tenderness Extremity: OTHER: Good range of motion Neuro: COMMON NORMALS: no focal motor deficits SENSORIUM/ORIENTATION: Yes alert Psych: COMMON NORMALS: mental status grossly normal APPEARANCE: Yes grossly normal and Yes well kempt ATTITUDE: Yes calm and Yes engaged MOOD & AFFECT: Yes anxious (Related to her medical condition) INSIGHT: Good insight present (Psych) JUDGEMENT: Good judgement present (Psych) Skin: COMMON NORMALS: no rashes or lesions noted and no jaundice GENERAL SKIN EXAM: no rashes or lesions noted Data 06/15/22 02:25 06/15/22 02:25 A&P Assessment and plan (1) Calculus of proximal left ureter: Approximately 5 mm left proximal ureteral stone with obstructive changes and severe symptomatology in the absence of severe infectious concerns. (2) Acute flank pain: Secondary to left proximal ureteral stone (3) Urolithiasis: Multi stone former. Passed a stone in December 2021. Current stone causing problems was identified in the left kidney at that time. No additional stones seen. Plan 1. She would like to see if she could pass the stone or least get her symptoms controlled well enough that she could be managed on outpatient basis with expected stone passage. Has passed up to 6 stones previously. Never has had to have surgery. 2. Continue on antibiotics and send on antibiotics since if she does go home. Right now there is no evidence of any kind of a systemic infectious concern. 3. Regular diet and n.p.o. after midnight with option to intervene tomorrow if she is not able to manage her symptoms well enough that she could continue that process at home safely. 4. Will need to modify her environment to reduce her risk of forming stones moving forward. She had been seen previously and had not really implemented any of the recommended metabolic changes. Attestations Medical Necessity Statement*: Uncontrolled pain. Coding Level of Care Code Acute Ground Control Approach Technician for [facility] Brenda Diagnoses Calculus of proximal left ureter N20.1 Acute flank pain R10.9 Urolithiasis N20.9
[2022-06-15] MEDS: oxyCODONE-APAP 5-325 mg Tablet 1 TAB PO ×2 (09:10→17:21)
[2022-06-15] MEDS: docusate sodium 100 mg Capsule PO ×2 (09:10→17:22)
[2022-06-15] MEDS: tamsulosin 0.4 mg Capsule PO (09:10)
[2022-06-15] MEDS: sodium chlor 0.9% + KCl 20 mEq 20 MEQ/1,000 ML BAG 150 MEQ IV ×3 (09:11→20:29)
[2022-06-15] MEDS: ketorolac 30 mg/mL INJ 15 MG IVP ×2 (12:48→19:42)
[2022-06-16] VITALS (10 sets, daily range): BP systolic 110–127; BP diastolic 61–85; PULSE 84–101; RESP 15–20; TEMP 36.7–36.9; O2SAT 97–100
[2022-06-16] MEDS: oxyCODONE-APAP 5-325 mg Tablet 1 TAB PO ×3 (01:51→15:51)
[2022-06-16] MEDS: ondansetron 2 mg/ML SDV 2 mL 4 MG IVP ×2 (01:52→08:31)
[2022-06-16] MEDS: ketorolac 30 mg/mL INJ 15 MG IVP (03:18)
[2022-06-16] MEDS: sodium chlor 0.9% + KCl 20 mEq 20 MEQ/1,000 ML BAG 150 MEQ IV ×3 (03:20→19:45)
[2022-06-16 04:48] LABS: Basophils % 0.3 %; Eosinophils # 0.2 10^3/uL (0.0-0.8); Eosinophils % 1.5 %; Hematocrit 36.8 % (37.0-47.0); Hemoglobin 11.7 g/dL (11.5-15.3); Lymphocytes % 17.6 %; Mean Corpuscular HGB Conc 31.8 g/dL (30.0-36.0); Mean Corpuscular Hemoglobin 25.8 pg (28.0-34.0); Mean Corpuscular Volume 81.2 fl (81-99); Mean Platelet Volume 12.9 fL (7.4-10.4); Monocytes % 8.8 %; Neutrophils # 8.15 10^3/uL (1.8-7.7); Neutrophils % 71.4 %; Nucleated Red Blood Cells % 0 %; Platelet Count 175 10^3/cmm (130-400); Red Blood Count 4.53 10^6/uL (4.1-5.3); Red Cell Distribution Width 14.1 % (12.1-15.1); White Blood Count 11.4 10^3/uL (4.0-10.0)
[2022-06-16 05:17] LABS: Anion Gap 14.5 (5-19); Blood Urea Nitrogen 16 mg/dL (6-20); Calcium 8.5 mg/dL (8.5-10.5); Carbon Dioxide 20 mmol/L (22-29); Chloride 106 mmol/L (98-107); Glomerular Filtration Rate 57.9 mL/min (90-130); Glucose 107 mg/dL (65-115); Osmolality Calculated 284 mOsm/kg (285-295); Potassium 4.5 mmol/L (3.5-5.1); Sodium 136 mmol/L (136-145)
--- NOTE | 2022-06-16 06:00 | XRR_ITS ---
PROCEDURE INFORMATION: Exam: XR Abdomen Exam date and time: 06/16/2022 4:58 AM Age: 32 years old Clinical indication: Condition or disease; Kidney or ureter condition; Calculus (stone) in ureter; Additional info: Follow-up left proximal ureteral stone TECHNIQUE: Imaging protocol: Radiologic exam of the abdomen. Views: Frontal supine view of the abdomen. 1 View. COMPARISON: CT abdomen pelvis wo con [id number] 06/15/2022 2:38 AM FINDINGS: Gastrointestinal tract: Normal. No bowel dilation. Organs: Is a 4 mm calculus projecting in the left ureter at the L3 level. Bones/joints: Unremarkable. XR/XR KUB [id number] IMPRESSION: There is a 4 mm calculus projecting in the left ureter at the L3 level.
[2022-06-16] MEDS: docusate sodium 100 mg Capsule PO ×2 (08:26→17:08)
[2022-06-16] MEDS: tamsulosin 0.4 mg Capsule PO (08:26)
--- NOTE | 2022-06-16 09:45 | P.PN_ITS ---
Subjective Subjective: Urology follow-up Hospital day #2, left proximal ureteral stone with obstruction. Her pain is better controlled but still requiring intermittent narcotics/parenteral Toradol. No evidence of infectious concerns. Nausea better. KUB showed that the stone had not progressed any from its location on CT scan yesterday. We had a long discussion regarding the options. She was offered the choice of going to the OR today for definitive treatment of the stone or stenting if not accessible, postponement until potentially tomorrow, discharge home (not recommended due to her need for parenteral treatment). Wide-ranging discussion regarding making decisions and ultimately she elected to postpone discharge and be placed on the schedule for tomorrow if the stone had not made any progress. If the stone she is showing progress and she can manage with oral narcotics she would prefer to go home at that point. I think that is a reasonable choice. Vitals/I&O/Wt Last Vital Signs Temp 98.5 F 06/16/22 07:48 Pulse 88 06/16/22 07:48 Resp 16 06/16/22 08:26 BP 124/84 06/16/22 07:48 Pulse Ox 100 06/16/22 07:48 O2 Del Method 06/16/22 07:48 06/15/22 06/16/22 06/16/22 22:59 06:59 14:59 Intake Total 1932.5 / 2808.5 1800 / 4608.5 Output Total 300 / 1050 1300 / 2350 Balance 1632.5 / 1758.5 500 / 2258.5 Weight last 48 hrs Weight 291 lb 9.6 oz Physical Exam Const: COMMON NORMALS: no acute distress, alert and well nourished GENERAL APPEARANCE: well kempt and well developed ORIENTATION/CONSCIOUSNESS: not confused Chest: OTHER: Normal chest movement Resp: COMMON NORMALS: normal respiratory effort EFFORT & INSPECTION: Yes able to speak in complete sentences, No labored and No Actively coughing Extremity: OTHER: Good range of motion Neuro: COMMON NORMALS: no focal motor deficits SENSORIUM/ORIENTATION: Yes alert Psych: COMMON NORMALS: mental status grossly normal APPEARANCE: Yes grossly normal and Yes well kempt ATTITUDE: Yes calm and Yes engaged MOOD & AFFECT: Yes anxious (Related to her medical condition) INSIGHT: Good insight present (Psych) JUDGEMENT: Good judgement present (Psych) Data 06/16/22 03:42 06/16/22 03:42 A&P Assessment and plan (1) Calculus of proximal left ureter: Still requiring parenteral medication. Stone has not moved on KUB. She wants t o go ahead and be put on the schedule for tomorrow in case she has not made any progress by that time (2) Acute flank pain: Secondary to left proximal ureteral stone. Better but still requiring parenteral medications (3) Urolithiasis: Multi stone former. Passed a stone in December 2021. Current stone causing problems was identified in the left kidney at that time. No additional stones seen. Plan See HPI. Attestations Medical Necessity Statement*: Still requiring parenteral medications for pain control. Coding Level of Care Code Acute Founding Partner for [facility] Diagnoses Calculus of proximal left ureter N20.1 Acute flank pain R10.9 Urolithiasis N20.9 Time Spent (min) 40
[2022-06-16] MEDS: levoFLOXacin 500 mg Tablet PO (11:07)
[2022-06-16] MEDS: morphine 4 mg/mL SDV 1 mL IVP (16:15)
[2022-06-17] VITALS: BP 132/86; PULSE 95; RESP 17; TEMP 36.8; O2SAT 100
[2022-06-17 02:25] LABS: Basophils % 0.2 %; Eosinophils # 0.2 10^3/uL (0.0-0.8); Eosinophils % 1.9 %; Hematocrit 34.8 % (37.0-47.0); Hemoglobin 10.8 g/dL (11.5-15.3); Lymphocytes # 2.4 10^3/uL (0.8-4.8); Lymphocytes % 26.6 %; Mean Corpuscular Hemoglobin 25.8 pg (28.0-34.0); Mean Corpuscular Volume 83.3 fl (81-99); Mean Platelet Volume 12.7 fL (7.4-10.4); Monocytes # 0.9 10^3/uL (0.2-0.9); Monocytes % 9.5 %; Neutrophils # 5.56 10^3/uL (1.8-7.7); Neutrophils % 61.4 %; Nucleated Red Blood Cells % 0 %; Platelet Count 161 10^3/cmm (130-400); Red Blood Count 4.18 10^6/uL (4.1-5.3); Red Cell Distribution Width 14.1 % (12.1-15.1); White Blood Count 9.1 10^3/uL (4.0-10.0)
[2022-06-17] MEDS: sodium chlor 0.9% + KCl 20 mEq 20 MEQ/1,000 ML BAG 150 MEQ IV (02:31)
[2022-06-17 03:00] LABS: Anion Gap 13.4 (5-19); Blood Urea Nitrogen 15 mg/dL (6-20); Calcium 8.7 mg/dL (8.5-10.5); Carbon Dioxide 22 mmol/L (22-29); Chloride 103 mmol/L (98-107); Glucose 91 mg/dL (65-115); Osmolality Calculated 278 mOsm/kg (285-295); Potassium 4.4 mmol/L (3.5-5.1); Sodium 134 mmol/L (136-145)
[2022-06-17 04:00] VITALS: BP 129/84; PULSE 82; RESP 16; TEMP 37; O2SAT 98
--- NOTE | 2022-06-17 05:00 | XRR_ITS ---
PROCEDURE INFORMATION: Exam: XR Abdomen Exam date and time: 06/17/2022 5:45 AM Age: 32 years old Clinical indication: Condition or disease; Kidney or ureter condition; Calculus (stone) in ureter; Prior surgery; Surgery type: Gb; Patient HX: F/u left nephrolithiasis. Patient states she thinks she passed it this morning. ; Additional info: Left proximal ureteral stone reevaluation TECHNIQUE: Imaging protocol: Radiologic exam of the abdomen. Views: Frontal supine view of the abdomen. 1 View. COMPARISON: CR XR KUB [id number] 06/16/2022 4:58 AM FINDINGS: Gastrointestinal tract: Normal. No bowel dilation. Vasculature: Previously noted calcification projecting over the left mid ureter is no longer visualized and presumed to a passed. There is a stable small calcification right lower pelvis likely representing a phlebolith. Bones/joints: Unremarkable. XR/XR KUB [id number] IMPRESSION: Interval passage of left ureteral stone.
[2022-06-17] MEDS: levoFLOXacin 500 mg Tablet PO (06:00)
--- NOTE | 2022-06-17 06:09 | PC.NURSE ---
Pt IV infiltrated, pt wanted to wait and round with the Doctor before another IV was placed.
--- NOTE | 2022-06-17 07:19 | PM.DCS ---
Discharge Providers Date of Admission: 06/16/22 10:24 Date of Discharge: June 17, 2022 Attending Provider at Admission: Froylan Larios MD Attending Provider at Discharge: Froylan Larios MD Diagnoses at Discharge Discharge Diagnosis (1) Calculus of proximal left ureter: Details from hospital stay: Treated conservatively with fluids and pain medication and ultimately passed the stone on day of discharge. Status: Acute (2) Acute flank pain: Details from hospital stay: Resolved Status: Acute (3) Urolithiasis: Details from hospital stay: Recurrent stone former. Recommended 24-hour urine and strict adherence to dietary manipulation for stone risk reduction CT scan showed no additional renal calculi Status: Acute Reason for Visit Reason for Visit: kidney stones Hospital Course Hospital Course She was admitted Through the emergency department on 06/15/2022 for refractory left ureteral colic secondary to a 4 to 5 mm stone in the left proximal ureter. No clear evidence of infection. She has a terrible time controlling her pain. We discussed intervention versus continued conservative management and because her pain was better she wanted to see if she could pass the stone. She was very reluctant to consider surgery. On 06/16/2022 the stone had not shown any progress but she wanted to wait another day. She was tentatively placed on the schedule for 06/17/2022 for endoscopic treatment of the stone but ultimately circuitry negative inspector 06/17/2022 she passed the stone. KUB at that morning confirmed that she had indeed passed the stone. Was discharged on 06/17/2022 in stable condition. We reviewed the importance of long-term stone risk reduction strategies. Currently she has NO ADDITIONAL RENAL CALCULI on CT scan. She has form stones off and on since she was in her early teens and therefore her risk is considered substantial. Will do a 24-hour urine in about a month and until that time she is to focus on stone risk reduction strategies. Handout provided. Physical Exam Const: COMMON NORMALS: no acute distress, alert and well nourished GENERAL APPEARANCE: well kempt and well developed ORIENTATION/CONSCIOUSNESS: not confused Resp: COMMON NORMALS: normal respiratory effort EFFORT & INSPECTION: Yes able to speak in complete sentences, No labored and No Actively coughing Neuro: COMMON NORMALS: no focal motor deficits SENSORIUM/ORIENTATION: Yes alert Psych: COMMON NORMALS: mental status grossly normal APPEARANCE: Yes grossly normal and Yes well kempt ATTITUDE: Yes calm and Yes engaged MOOD & AFFECT: Yes anxious (Related to her medical condition) INSIGHT: Good insight present (Psych) JUDGEMENT: Good judgement present (Psych) Discharge Data Studies Completed and Pending Completed Studies During Hospitalization Category Date Time Status CT abdomen pelvis wo con [id number] Stat Cat Scan 06/15/22 02:05 Completed XR KUB [id number] Routine Exams 06/16/22 06:00 Completed Pending at discharge Category Date Time Status C-arm FL for Urology Stat Exams 06/17/22 10:30 Ordered XR KUB [id number] Routine Exams 06/17/22 05:00 Taken Stone Analysis Routine Lab 06/17/22 07:13 Uncollected Radiology Impressions Abdomen/Pelvis CT 06/15/22 02:05 IMPRESSION: 1. Left proximal ureteral small calculus causes mild obstruction. 2. Constipation a few other chronic findings. Laboratory Results WBC 9.1 10^3/uL (4.0-10.0) 06/17/22 02:05 RBC 4.18 10^6/uL (4.1-5.3) 06/17/22 02:05 Hgb 10.8 g/dL (11.5-15.3) L 06/17/22 02:05 Hct 34.8 % (37.0-47.0) L 06/17/22 02:05 MCV 83.3 fl (81-99) 06/17/22 02:05 MCH 25.8 pg (28.0-34.0) L 06/17/22 02:05 MCHC 31.0 g/dL (30.0-36.0) 06/17/22 02:05 RDW 14.1 % (12.1-15.1) 06/17/22 02:05 Plt Count 161 10^3/cmm (130-400) 06/17/22 02:05 MPV 12.7 fL (7.4-10.4) H 06/17/22 02:05 Neut % (Auto) 61.4 % 06/17/22 02:05 Lymph % (Auto) 26.6 % 06/17/22 02:05 [place] % (Auto) 9.5 % 06/17/22 02:05 Eos % (Auto) 1.9 % 06/17/22 02:05 Baso % (Auto) 0.2 % 06/17/22 02:05 Neut # (Auto) 5.56 10^3/uL (1.8-7.7) 06/17/22 02:05 Lymph # (Auto) 2.4 10^3/uL (0.8-4.8) 06/17/22 02:05 [place]ascade # (Auto) 0.9 10^3/uL (0.2-0.9) 06/17/22 02:05 Eos # (Auto) 0.2 10^3/uL (0.0-0.8) 06/17/22 02:05 Baso # (Auto) 0.0 10^3/uL (0.0-0.1) 06/17/22 02:05 Nucleated RBC % (auto) 0 % 06/17/22 02:05 Nucleated RBCs # 0.0 /100WBC 06/17/22 02:05 Sodium 134 mmol/L (136-145) L 06/17/22 02:05 Potassium 4.4 mmol/L (3.5-5.1) 06/17/22 02:05 Chloride 103 mmol/L (98-107) 06/17/22 02:05 Carbon Dioxide 22 mmol/L (22-29) 06/17/22 02:05 Anion Gap 13.4 (5-19) 06/17/22 02:05 BUN 15 mg/dL (6-20) 06/17/22 02:05 Creatinine 0.9 mg/dL (0.5-0.9) 06/17/22 02:05 GFR Calculation 73.0 mL/min (90-130) L 06/17/22 02:05 Glucose 91 mg/dL (65-115) 06/17/22 02:05 Calculated Osmolality 278 mOsm/kg (285-295) L 06/17/22 02:05 Calcium 8.7 mg/dL (8.5-10.5) 06/17/22 02:05 Total Bilirubin 0.2 mg/dL (0.15-1.2) 06/15/22 02:25 AST 14 U/L (0-32) 06/15/22 02:25 ALT 16 U/L (0-33) 06/15/22 02:25 Alkaline Phosphatase 90 U/L (35-105) 06/15/22 02:25 Total Protein 7.3 g/dL (6.6-8.7) 06/15/22 02:25 Albumin 3.9 g/dL (3.5-5.2) 06/15/22 02:25 Globulin 3.4 g/dL (1.3-4.6) 06/15/22 02:25 Lipase 31 U/L (13-60) 06/15/22 02:25 HCG, Qual Negative (Negative) 06/15/22 02:38 Urine Color Yellow (Yellow) 06/15/22 02:38 Urine Appearance Sl hazy (CLEAR) A 06/15/22 02:38 Urine pH 6 (5-7) 06/15/22 02:38 Ur Specific [place] 1.015 (1.005-1.030) 06/15/22 02:38 Urine Protein Neg (Negative) 06/15/22 02:38 Urine Glucose (UA) Norm (Normal) 06/15/22 02:38 Urine Ketones Negative (Negative) 06/15/22 02:38 Urine Blood 2+ (Negative) H 06/15/22 02:38 Urine Nitrate Negative (Negative) 06/15/22 02:38 Urine Bilirubin Neg (Negative) 06/15/22 02:38 Urine Urobilinogen Norm mg/dL (Negative) 06/15/22 02:38 Ur Leukocyte Esterase 2+ (Negative) H 06/15/22 02:38 Urine RBC 5-10 /hpf (0-2) H 06/15/22 02:38 Urine WBC 40-55 /hpf (0-5) H 06/15/22 02:38 Ur Squamous Epith Cells 25-40 /hpf (0-5) H 06/15/22 02:38 Amorphous Sediment Not Reportable 06/15/22 02:38 Urine Bacteria 3+ /hpf (NONE) H 06/15/22 02:38 Urine Mucus 1+ /hpf 06/15/22 02:38 Vitals Last Vital Signs Temp 98.6 F 06/17/22 04:00 Pulse 82 06/17/22 04:00 Resp 16 06/17/22 04:00 BP 129/84 06/17/22 04:00 Pulse Ox 98 06/17/22 04:00 O2 Del Method 06/16/22 15:26 Discharge Plan Discharge Patient Disposition: Home Condition: Stable Prescriptions: New levofloxacin 500 mg Tablet 500 mg PO DAILY@0600 Qty: 7 0RF Discharge Orders: Discharge Order (Routine); Ordered 06/17/22 Ordered By: Froylan Larios Referrals: Eveline Kruger NP [Nurse Practitioner] - Froylan Larios MD [Physician] - 2 months (Collect 24-hour urine in approximately 1 month after changing dietary habits to coincide with the handout for stone risk reduction strategies.) Discharge Diet: Usual diet Discharge Activity: Resume usual activity Patient Instructions: Opioid Safety Activity Restrictions/Additional Instructions: 1. Begin modification of your diet to coincide with a handout provided. This is very important to do before you do your 24-hour urine. 2. When you drop 24-hour urine off we will get some lab work drawn as well. 3. We will follow you up in about a month to 6 weeks after you drop off the 24-hour urine. 4. Prescription for Levaquin for 7 days has been provided. Complete it. Let me know if you have any progressive infectious type symptoms. Discharge Attestations Time Spent in Discharge Care*: greater than 30 min Quality Metrics Clinical Quality Measures [ No reported AMI, CVA or VTE this stay] Coding Level of Care Code Acute Chg FW DC note Diagnoses Calculus of proximal left ureter N20.1 Acute flank pain R10.9 Urolithiasis N20.9 Time Spent (min) 35 Comment X-ray, chart review. Patient interview, documentation
[2022-06-17] MEDS: docusate sodium 100 mg Capsule PO (07:43)
[2022-06-17 07:54] VITALS: BP 123/85; PULSE 76; RESP 16; TEMP 36.9; O2SAT 97
== END 2022-06-17 08:30 | disposition home or self-care (01) | DRG 694 ==
LOC: ER 04:46 → MEDSURG 04:57
PROVIDERS: Admitting Provider Urology; Emergency Provider Emergency Medicine; Visit Provider Urology
DX: N13.2 Hydronephrosis with renal and ureteral calculous obstruction (principal); Z68.42 Body mass index [BMI] 45.0-49.9, adult; Z87.442 Personal history of urinary calculi; E66.9 Obesity, unspecified
CPT/HCPCS: 36415; 74018; 74176; 80048; 80053; 81001; 81025; 83690; 85025; 88300; 96365; 96375; 96376; 99285; G0378; J0696; J1170; J1885; J2060; J2270; J2405; J3480; J7030

== ENCOUNTER → 2022-06-17 08:55 | Outpatient (BNVA) | payer OTHER, SELFPAY | PROVIDERS: Visit Provider Urology | DX: N20.9 Urinary calculus, unspecified (principal) | CPT/HCPCS: 82365 ==

== ENCOUNTER 2022-08-13 12:02 | Outpatient (CLI) | payer OTHER, SELFPAY ==
--- NOTE | 2022-08-13 12:21 | XR_ITS ---
WS: [id number] XR KUB [id number] REASON FOR EXAM: Kidney Stone FINDINGS: No intrarenal calculi identified. Previously identified calculus (06/16/2022) in the proximal left ureter is no longer identifiable. No calculi are seen overlying the distal ureters or bladder. No other significant abnormality. XR/XR KUB [id number] IMPRESSION: No urinary tract calculi identified.
== END 2022-08-13 12:03 | disposition home or self-care (01) ==
LOC: RAD 12:06
PROVIDERS: Visit Provider Urology
DX: N20.1 Calculus of ureter (principal)
CPT/HCPCS: 74018; 81003

== ENCOUNTER → 2023-09-29 08:52 | Outpatient (BNVA) | payer OTHER, SELFPAY | PROVIDERS: Visit Provider Nurse Practitioner Family | DX: M54.32 Sciatica, left side (principal); E66.01 Morbid (severe) obesity due to excess calories; Z68.42 Body mass index [BMI] 45.0-49.9, adult | CPT/HCPCS: 80053; 85025 ==

== ENCOUNTER 2023-11-25 22:51 | Emergency (ER) | payer OTHER, SELFPAY ==
[2023-11-25 22:56] VITALS: BP 136/87; PULSE 110; RESP 22; TEMP 36.7; O2SAT 98
[2023-11-25 22:59] VITALS: BP 124/85; PULSE 100; RESP 18; O2SAT 99
--- NOTE | 2023-11-25 23:17 | XRR_ITS ---
PROCEDURE INFORMATION: Exam: XR Lumbosacral Spine Exam date and time: 11/25/2023 11:57 PM Age: 33 years old Clinical indication: Injury or trauma; Fall; Work related; Other: Pain; Additional info: Fall injury TECHNIQUE: Imaging protocol: Radiologic exam of the lumbosacral spine. Views: 2 or 3 views. COMPARISON: CT abdomen pelvis wo con [id number] 06/15/2022 2:38 AM FINDINGS: Bones/joints: Minimal levoscoliosis. Soft tissues: Unremarkable. Organs: Surgical clips in the gallbladder fossa consistent with cholecystectomy. XR/XR lumbar spine 2-3V* [id number] IMPRESSION: Minimal levoscoliosis.
--- NOTE | 2023-11-25 23:37 | ED_ITS ---
HPI - Back Pain/Injury General: Chief Complaint: Back Pain/Injury Stated Complaint: Back Pain Time Seen by Provider: 11/25/23 23:20 History of Present Illness: 33-year-old female comes in today for co mplaints of injury to the low back. Patient states that she was emptying the Hemovac while at work this evening and it popped open causing blood to splash out towards her. This shock patient and she fell backwards but caught herself between a chair and a bedside table. Patient denies falling fully to the ground but felt a strain across her right lower back. When patient tried to get up from the reclined position afterwards she had said intense pain across her lower back and right side of her paraspinous back. Patient appears in moderate pain. Patient appears nontoxic. Patient has had a tubal ligation and denies . Patient has been on naproxen and tizanidine before for back pain. Review of Systems General: Reports: 10 or more systems reviewed and unremarkable except in HPI and below Musc: Reports: back pain PFSH ED PFSH: Medical History Psychiatric care Urolithiasis History of pyelonephritis Nephrolithiasis Surgical History H/O tubal ligation Family History Mother , AT AGE 37 Drug abuse Father , at age 53 Cancer stomach Social History Smoking and tobacco/nicotine status: never used tobacco/nicotine Alcohol intake: current Alcohol intake frequency: holidays/special occasions only Substance/Drug Use: never Household members: spouse Marital status: Current occupational status: employed Female Reproductive History: Spontaneous abortions: No Physical Exam Const: COMMON NORMALS: alert HENMT: COMMON NORMALS: normocephalic HEAD & SCALP: normocephalic Neck/C-Spine: COMMON NORMALS: full ROM Chest: COMMONS NORMALS: normal inspection of the chest Resp: COMMON NORMALS: normal respiratory effort Cardio: COMMON NORMALS: regular rate RATE: regular rate GI: COMMON NORMALS: non-tender Back/Pelvis: LUMBAR SPINE/LOWER BACK: Yes lumbar spinal tenderness Lumbar spinal tenderness location: L4 and L5 and Yes paraspinal muscle tenderness Lumbar paraspinal muscle tenderness: right Right lumbar paraspinal muscle tenderness: L3, L4 and L5 Extremity: COMMON NORMALS: normal to inspection NARRATIVE EXTREMITY EXAM: Leg lift test positive on the right Neuro: SENSORIUM/ORIENTATION: Yes alert Skin: COMMON NORMALS: turgor normal GENERAL SKIN EXAM: turgor normal Course Vital Signs: Vital signs: Vital Signs Temperature 98.1 F 11/25/23 22:56 Pulse Rate 100 11/25/23 22:59 Respiratory Rate 18 11/25/23 22:59 Blood Pressure 124/85 11/25/23 22:59 Pulse Oximetry 99 11/25/23 22:59 Oxygen Delivery Me thod Room Air 11/25/23 22:59 MDM - Back Pain/Injury Medical Decision Making 33-year-old female comes in today with low back injury. On exam patient appears nontoxic. Patient appears no acute distress. Patient has tenderness in her lumbar right side paraspinous muscles. Patient has tenderness in the lower grecia tebral area of the spine. Patient appears nontoxic. Patient appears in moderate pain. Patient does have a history of prior back pain. Differential diagnosis includes lumbar strain, intervertebral disc disease, facet arthropathy. X-ray was unremarkable. Reviewed exam with patient and family with recommendations for treatment for lumbar strain. Patient reports understanding and agreed to plan. All radiology interpretation(s) finalized by discharge Discharge Plan Discharge Patient Disposition: Home Clinical Impression: Strain of lumbar region Qualifiers: Encounter type: initial encounter Qualified Code(s): S39.012A - Strain of muscle, fascia and tendon of lower back, initial encounter Condition: Stable Prescriptions: New diclofenac sodium 75 mg tablet,delayed release (DR/EC) 75 mg PO BID Qty: 20 0RF Rx Instructions: do not use with ibuprofen or naproxen cyclobenzaprine 10 mg tablet 10 mg PO TID PRN (Reason: muscle spasm) Qty: 20 0RF No Action tizanidine 4 mg tablet 4 mg PO Q8H PRN (Reason: muscle spasticity) Qty: 90 0RF naproxen 500 mg tablet,delayed release (DR/EC) 500 mg PO BID 30 Days Qty: 60 0RF Discharge Orders: Discharge ED (Routine); Ordered 11/26/23 Ordered By: Ricardo Ellington Referrals: Eveline Kruger NP [Primary Care Provider] - Discharge Diet: Usual diet Discharge Activity: Increase activity as tolerated Patient Instructions: Low Back Strain (ED), Lower Back Exercises (ED) Activity Restrictions/Additional Instructions: Follow-up with primary care or Workmen's Comp. specialist and 1 week. Return to work in 3 days. Follow-up with primary care or Workmen's Comp. specialist is unable to follow back up with work. Return to ED for new concerns. Coding Level of Care Code ED Supervisor [employer] for Wilbert Gutierrez
[2023-11-26] MEDS: ketorolac 60 mg/2 mL INJ IM (00:07)
[2023-11-26] MEDS: orphenadrine 30 mg/mL Inj 2 mL 60 MG IM (00:08)
[2023-11-26 00:35] VITALS: BP 160/118; PULSE 77; RESP 16; O2SAT 96
[2023-11-26 01:26] VITALS: PULSE 77; RESP 16; O2SAT 96
== END 2023-11-26 01:28 | disposition home or self-care (01) ==
PROVIDERS: Emergency Provider Nurse Practitioner Family; PCP Nurse Practitioner Family
DX: S39.012A Strain of muscle, fascia and tendon of lower back, initial encounter (principal); W19.XXXA Unspecified fall, initial encounter; Y99.0 Civilian activity done for income or pay
CPT/HCPCS: 72100; 96372; 99284; J1885; J2360

== ENCOUNTER → 2025-02-24 10:08 | Outpatient (BNVA) | payer OTHER, SELFPAY | DX: Z76.89 Persons encountering health services in other specified circumstances (principal) | CPT/HCPCS: 80053; 82533; 84146; 84403; 84443; 85025 ==

== ENCOUNTER → 2025-03-31 11:08 | Outpatient (BNVA) | payer OTHER, SELFPAY | DX: Z01.419 Encounter for gynecological examination (general) (routine) without abnormal findings (principal) | CPT/HCPCS: 87624 ==